=== PATIENT | male | born 1950 | race Hispanic/Latino ===

== ENCOUNTER 2017-07-21 14:25 | Inpatient (IN) | payer OTHER ==
[~2017-07-21] VITALS: Ht 170.2 cm; Wt 99.8 kg
[2017-07-21] MEDS: CEFAZOLIN SODIUM 1 GM VIAL IVP SCH (09:00)
[2017-07-21 15:05] VITALS: BP 123/68
[2017-07-21 15:09] LABS: BASOPHILS % (AUTO) 0.5 % (0.0-5.0); EOSINOPHILS % (AUTO) 2.9 % (0.0-8.0); HEMATOCRIT 37.9 % (42-54); LYMPHOCYTES % (AUTO) 17.7 % (21.0-51.0); MEAN CORPUSCULAR HEMOGLOBIN 30.4 pg (27.0-33.0); MEAN CORPUSCULAR VOLUME 86.9 fL (79-99); MONOCYTES % (AUTO) 9.6 % (3.0-13.0); NEUTROPHILS % (AUTO) 69.3 % (40.0-77.0); NUCLEATED RED BLOOD CELLS 0.1 % (0.0-0.19); PLATELET COUNT (AUTO) 199 K/uL (130-400); RED BLOOD CELL COUNT(AUTO) 4.36 MIL/uL (4.50-6.20); RED CELL DISTRIBUTION WIDTH 15.4 % (11.0-15.5); WHITE BLOOD COUNT (AUTO) 8.4 K/uL (4.8-10.8)
[2017-07-21 15:10] LABS: APPEARANCE,URINE Clear (CLEAR); BILIRUBIN,URINE Negative (NEGATIVE); COLOR,URINE Yellow (YELLOW); GLUCOSE, URINE (UA) Negative (NEGATIVE); KETONES,URINE Negative (NEGATIVE); LEUKOCYTE ESTERASE ,URINE Negative (NEGATIVE); NITRATE,URINE Negative (NEGATIVE); OCCULT BLOOD,URINE Negative (NEGATIVE); PROTEIN,URINE Negative (NEGATIVE)
[2017-07-21 15:22] LABS: POTASSIUM 3.3 mmol/L (3.5-5.1)
[2017-07-21 15:26] LABS: INR 1.18 (0.85-1.15); PARTIAL THROMBOPLASTIN TIME 28.5 SEC (26.3-35.5); PROTHROMBIN TIME 12.4 SEC (9.6-11.6)
[2017-07-21] MEDS ORDERED: ATOR20TA65 PO (16:20)
[2017-07-21] MEDS ORDERED: WARF-67 PO ×2 (16:20)
[2017-07-21] MEDS ORDERED: METO100T14 PO (16:20)
[2017-07-21] MEDS ORDERED: METF10004 PO (16:20)
[2017-07-21] MEDS ORDERED: ISOS30TA6 PO (16:20)
[2017-07-21] MEDS ORDERED: LISI-613 PO (16:20)
[2017-07-21] MEDS ORDERED: AMLO10TA2 PO (16:20)
[2017-07-21] MEDS ORDERED: FURO40TA5 PO (16:20)
[2017-07-21] MEDS ORDERED: GLIP10TA9 PO (16:20)
[2017-07-21] MEDS ORDERED: SITA100T12 PO (16:20)
[2017-07-24] VITALS (24 sets, daily range): BP systolic 112–149; BP diastolic 67–83
[2017-07-24] MEDS ORDERED: SODIUM CHLORIDE 0.9% 1000ML 1,000 ML IV ONE (08:14)
[2017-07-24] MEDS ORDERED: ACETAMINOPHEN EXTRA STRENGTH 500 MG TABLET ONE (12:16)
[2017-07-24] MEDS ORDERED: KETOROLAC TROMETHAMINE 15MG/ML ONE (12:16)
[2017-07-24] MEDS ORDERED: OXYCODONE HCL 10 MG TAB.SR.12H PO ONE (12:16)
[2017-07-24] MEDS ORDERED: CELECOXIB 200 MG CAP ONE (12:16)
[2017-07-24] MEDS ORDERED: CEFAZOLIN SODIUM 1 GM VIAL ONE (12:39)
[2017-07-24] MEDS ORDERED: BUPIVACAINE/EPI/PF 0.25% 30ML VIAL IJ ONE (12:40)
[2017-07-24] MEDS ORDERED: PHENYLEPHRINE HCL 10 MG/ML 1ML VIAL IV ONE (12:45)
[2017-07-24] MEDS ORDERED: ONDANSETRON HCL 4 MG/2 ML VIAL ONE (12:45)
[2017-07-24] MEDS ORDERED: PROPOFOL 10 MG/ML 20ML VIAL IV ONE (12:46)
[2017-07-24] MEDS ORDERED: ROCURONIUM BROMIDE 10MG/1ML 5ML VL ONE (12:46)
[2017-07-24] MEDS ORDERED: SODIUM CHLORIDE 0.9% 10 ML VIAL ONE (12:46)
[2017-07-24] MEDS ORDERED: LIDOCAINE PF 2% 5ML ABBOJECT ONE (12:46)
[2017-07-24] MEDS ORDERED: FENTANYL CITRATE PF 50 MCG/1 ML 2ML VIAL ONE ×2 (12:46→16:23)
[2017-07-24] MEDS ORDERED: MIDAZOLAM HCL 1 MG/ML 2ML VIAL ONE (12:46)
[2017-07-24] MEDS ORDERED: ROPIVACAINE 0.5% 5MG/ML 30ML IJ ONE (12:54)
[2017-07-24] MEDS: CEFAZOLIN SODIUM 1 GM VIAL IVP SCH (14:38)
[2017-07-24] MEDS ORDERED: THROMBIN-JMI 5000 UNIT/VIAL TP ONE (14:53)
[2017-07-24] MEDS ORDERED: CEFAZOLIN SODIUM 1 GM VIAL IRRIG ONE (15:06)
[2017-07-24] MEDS ORDERED: WARFARIN SODIUM 5 MG TAB PO SCH (16:00)
[2017-07-24] MEDS: SODIUM CHLORIDE 0.9% 1000ML 1,000 ML IV SCH (16:23)
[2017-07-24] MEDS: INSULIN HUMULIN R 100 UNIT/ML 3ML SQ SCH ×2 (16:30→22:46)
[2017-07-24] MEDS ORDERED: TRAMADOL HCL 50 MG TABLET PO PRN (16:30)
[2017-07-24] MEDS ORDERED: FERROUS FUMARATE 324 MG TABLET PO PRN (16:30)
[2017-07-24] MEDS ORDERED: PROMETHAZINE HCL 25 MG/ML 1ML AMPULE IM PRN (16:30)
[2017-07-24] MEDS ORDERED: LIDOCAINE HCL-MPF 1% 2ML VIAL IVP PRN (16:30)
[2017-07-24] MEDS ORDERED: POTASSIUM CHLORIDE 10% ELIXIR 20 MEQ/15 ML UDCUP PO PRN (16:30)
[2017-07-24] MEDS ORDERED: DiphenhydrAMINE HCL 50 MG/ML VIAL IVP PRN (16:30)
[2017-07-24] MEDS ORDERED: DIPHENHYDRAMINE HCL 25 MG CAPSULE PO PRN (16:30)
[2017-07-24] MEDS ORDERED: KETOROLAC TROMETHAMINE 15MG/ML IV PRN (16:30)
[2017-07-24] MEDS ORDERED: CALCIUM CARBONATE 500 MG TABLET PO PRN (16:30)
[2017-07-24] MEDS ORDERED: OXYCODONE HCL 5 MG TAB PO PRN ×2 (16:30)
[2017-07-24] MEDS ORDERED: TEMAZEPAM 15 MG CAPSULE PO PRN (16:30)
[2017-07-24] MEDS ORDERED: POTASSIUM CHLORIDE 20MEQ/100ML 100 ML IV PRN (16:30)
[2017-07-24] MEDS: POTASSIUM CHLORIDE 20 MEQ ERTAB PO PRN (18:22)
[2017-07-24] MEDS: ACETAMINOPHEN 325 MG TAB PO SCH ×2 (18:23→21:47)
[2017-07-24] MEDS: FAMOTIDINE 20MG TAB 20 MG TAB PO SCH (21:46)
[2017-07-24] MEDS: CELECOXIB 200 MG CAP PO SCH (21:46)
[2017-07-24] MEDS: PREGABALIN 75 MG CAPSULE PO SCH (21:47)
[2017-07-24] MEDS ORDERED: WARFARIN SODIUM 2 MG TAB PO SCH (22:00)
[2017-07-24] MEDS: CEFAZOLIN 3GM /D5W 100ML 100 ML IV SCH (22:38)
[2017-07-25] MEDS: METOPROLOL TARTRATE 50 MG TAB PO SCH ×3 (00:01→21:14)
[2017-07-25] MEDS: LISINOPRIL 20 MG TABLET PO SCH ×3 (00:01→21:13)
[2017-07-25 00:23] VITALS: BP 150/94
[2017-07-25] MEDS: SODIUM CHLORIDE 0.9% 1000ML 1,000 ML IV SCH (02:23)
[2017-07-25] MEDS: CEFAZOLIN 3GM /D5W 100ML 100 ML IV SCH (04:24)
[2017-07-25] MEDS: ACETAMINOPHEN 325 MG TAB PO SCH ×4 (04:25→23:19)
[2017-07-25 04:48] VITALS: BP 130/85
[2017-07-25 05:12] LABS: HEMATOCRIT 33.8 % (42-54); MEAN CORPUSCULAR HEMOGLOBIN 30.5 pg (27.0-33.0); MEAN CORPUSCULAR HGB CONC 35.5 g/dL (32.0-36.0); MEAN CORPUSCULAR VOLUME 86.1 fL (79-99); PLATELET COUNT (AUTO) 189 K/uL (130-400); RED BLOOD CELL COUNT(AUTO) 3.92 MIL/uL (4.50-6.20); RED CELL DISTRIBUTION WIDTH 15.4 % (11.0-15.5); WHITE BLOOD COUNT (AUTO) 12.5 K/uL (4.8-10.8)
[2017-07-25 05:23] LABS: INR 1.25 (0.85-1.15); PROTHROMBIN TIME 13.1 SEC (9.6-11.6)
[2017-07-25 05:31] LABS: POTASSIUM 3.6 mmol/L (3.5-5.1)
[2017-07-25] MEDS: INSULIN HUMULIN R 100 UNIT/ML 3ML SQ SCH ×4 (06:35→21:00)
[2017-07-25 08:21] VITALS: BP 154/87
[2017-07-25] MEDS: POLYETHYLENE GLYCOL 3350 17 GM POWD.PACK PO SCH (09:15)
[2017-07-25] MEDS: LINAGLIPTIN 5 MG TABLET PO SCH (09:16)
[2017-07-25] MEDS: AMLODIPINE BESYLATE 5 MG TAB PO SCH (09:16)
[2017-07-25] MEDS: TAMSULOSIN HCL 0.4 MG CAP.ER.24H PO SCH (09:16)
[2017-07-25] MEDS: ISOSORBIDE MONO 30MG TAB SR PO SCH (09:16)
[2017-07-25] MEDS: CELECOXIB 200 MG CAP PO SCH ×2 (09:16→21:14)
[2017-07-25] MEDS: PREGABALIN 75 MG CAPSULE PO SCH ×2 (09:16→21:14)
[2017-07-25] MEDS: ATORVASTATIN CALCIUM 20 MG TABLET PO SCH (09:17)
[2017-07-25] MEDS: FUROSEMIDE 40 MG TABLET PO SCH (09:17)
[2017-07-25] MEDS: FAMOTIDINE 20MG TAB 20 MG TAB PO SCH ×2 (09:17→21:13)
[2017-07-25] MEDS: GLIPIZIDE 5 MG TABLET PO SCH (09:17)
[2017-07-25] MEDS: METFORMIN HCL 500 MG TABLET PO SCH ×2 (09:17→17:50)
[2017-07-25] MEDS: POTASSIUM CHLORIDE 20 MEQ ERTAB PO PRN ×2 (09:22→11:30)
[2017-07-25] MEDS: PSYLLIUM SEED 1 EACH PACKET PO SCH (11:30)
[2017-07-25 12:03] VITALS: BP 125/67
[2017-07-25] MEDS ORDERED: WARFARIN SODIUM 2 MG TAB PO SCH ×3 (17:00)
[2017-07-25 17:29] VITALS: BP 116/68
[2017-07-25 20:44] VITALS: BP 114/97
[2017-07-26 00:39] VITALS: BP 118/77
[2017-07-26 04:32] VITALS: BP 130/72
[2017-07-26] MEDS: ACETAMINOPHEN 325 MG TAB PO SCH ×2 (04:33→11:10)
[2017-07-26 06:10] LABS: HEMATOCRIT 29.9 % (42-54); MEAN CORPUSCULAR HEMOGLOBIN 30.7 pg (27.0-33.0); MEAN CORPUSCULAR HGB CONC 35.3 g/dL (32.0-36.0); MEAN CORPUSCULAR VOLUME 87.1 fL (79-99); PLATELET COUNT (AUTO) 159 K/uL (130-400); RED BLOOD CELL COUNT(AUTO) 3.43 MIL/uL (4.50-6.20); RED CELL DISTRIBUTION WIDTH 15.8 % (11.0-15.5); WHITE BLOOD COUNT (AUTO) 9.7 K/uL (4.8-10.8)
[2017-07-26 06:16] LABS: CREATININE 0.9 mg/dL (0.5-1.5)
[2017-07-26 06:20] LABS: INR 1.48 (0.85-1.15); PROTHROMBIN TIME 15.4 SEC (9.6-11.6)
[2017-07-26 06:25] LABS: POTASSIUM 3.6 mmol/L (3.5-5.1)
[2017-07-26] MEDS: INSULIN HUMULIN R 100 UNIT/ML 3ML SQ SCH ×2 (06:27→11:30)
[2017-07-26] MEDS: POTASSIUM CHLORIDE 20 MEQ ERTAB PO PRN (06:50)
[2017-07-26 08:11] VITALS: BP 131/80
[2017-07-26] MEDS: METFORMIN HCL 500 MG TABLET PO SCH (08:59)
[2017-07-26] MEDS: AMLODIPINE BESYLATE 5 MG TAB PO SCH (08:59)
[2017-07-26] MEDS: FAMOTIDINE 20MG TAB 20 MG TAB PO SCH (09:00)
[2017-07-26] MEDS: PREGABALIN 75 MG CAPSULE PO SCH (09:00)
[2017-07-26] MEDS: CELECOXIB 200 MG CAP PO SCH (09:00)
[2017-07-26] MEDS: GLIPIZIDE 5 MG TABLET PO SCH (09:00)
[2017-07-26] MEDS: LINAGLIPTIN 5 MG TABLET PO SCH (09:00)
[2017-07-26] MEDS: LISINOPRIL 20 MG TABLET PO SCH (09:00)
[2017-07-26] MEDS: METOPROLOL TARTRATE 50 MG TAB PO SCH (09:01)
[2017-07-26] MEDS: TAMSULOSIN HCL 0.4 MG CAP.ER.24H PO SCH (09:01)
[2017-07-26] MEDS: ATORVASTATIN CALCIUM 20 MG TABLET PO SCH (09:01)
[2017-07-26] MEDS: ISOSORBIDE MONO 30MG TAB SR PO SCH (09:01)
[2017-07-26] MEDS: FUROSEMIDE 40 MG TABLET PO SCH (09:02)
[2017-07-26] MEDS: POLYETHYLENE GLYCOL 3350 17 GM POWD.PACK PO SCH (09:02)
[2017-07-26] MEDS ORDERED: BISACODYL 5 MG TABLET.DR PO PRN ×2 (10:15→16:30)
[2017-07-26 11:58] VITALS: BP 104/71
[2017-07-26] MEDS ORDERED: HYDR-309 PO (12:52)
[2017-07-26] MEDS: PSYLLIUM SEED 1 EACH PACKET PO SCH (13:12)
[2017-07-26] MEDS ORDERED: WARFARIN SODIUM 2 MG TAB PO SCH (16:00)
[2017-07-26 17:33] VITALS: BP 105/68
[2017-07-27] MEDS ORDERED: BISACODYL 10 MG SUPP.RECT RC PRN (16:30)
== END 2017-07-26 17:50 | DRG 470 ==
LOC: EDHIP 14:25 → UNDOADMIN 14:25 → DAHIP 07-24 07:21 → 4AH 07-24 17:15
PROVIDERS: ADMIT Orthopaedic Surgery; ATTEND Orthopaedic Surgery
PROC: 0SRD0J9 Replacement of Left Knee Joint with Synthetic Substitute, Cemented, Open Approach (ICD-10-PCS; principal; 2017-07-24 14:07)
DX: M17.12 Unilateral primary osteoarthritis, left knee (principal); E11.9 Type 2 diabetes mellitus without complications; K21.9 Gastro-esophageal reflux disease without esophagitis; I10 Essential (primary) hypertension; E78.5 Hyperlipidemia, unspecified; Z95.1 Presence of aortocoronary bypass graft; Z86.73 Personal history of transient ischemic attack (TIA), and cerebral infarction without residual deficits
CPT/HCPCS: 36415; 80048; 81003; 82948; 84132; 85025; 85027; 85610; 85730; 88305; 88311; 96374; A4218; C1713; J0690; J1815; J1885; J2001; J2250; J2370; J2405; J2704; J2795; J3010; J3490; J7030

== ENCOUNTER → 2019-05-09 | Outpatient (CLI) | payer OTHER ==
[~2019-05-09] MED LIST: AMLO10TA7 PO; ATOR20TA65 PO; FURO40TA5 PO; GLIP10TA9 PO; HYDR-4457 PO; ISOS30TA6 PO; LISI-613 PO; METF-446 PO; METO100T14 PO; SITA100T12 PO; WARF-67 PO
== END | disposition home or self-care (01) ==
LOC: RAH 11:30
PROVIDERS: ATTEND Internal Medicine
DX: M19.032 Primary osteoarthritis, left wrist (principal)
CPT/HCPCS: 73110

== ENCOUNTER → 2021-12-27 | Outpatient (CLI) | payer OTHER ==
[~2021-12-27] MED LIST changes: +AMLO-258 PO; -AMLO10TA7 PO; -ISOS30TA6 PO; +ISOS30TA92 PO; -LISI-613 PO; +LISI20TA24 PO
== END | disposition home or self-care (01) ==
LOC: RAH 12:02
PROVIDERS: ATTEND Internal Medicine
DX: I08.3 Combined rheumatic disorders of mitral, aortic and tricuspid valves (principal); I11.9 Hypertensive heart disease without heart failure; I25.10 Atherosclerotic heart disease of native coronary artery without angina pectoris; E11.9 Type 2 diabetes mellitus without complications; E66.9 Obesity, unspecified; E78.5 Hyperlipidemia, unspecified; Z95.1 Presence of aortocoronary bypass graft
CPT/HCPCS: 93306

== ENCOUNTER → 2022-02-21 | Outpatient (CLI) | payer OTHER ==
[~2022-02-21] MED LIST changes: +REGADENOSON 0.4 MG/5 ML PF SYG IVP SCH
== END | disposition home or self-care (01) ==
LOC: RAH 07:59
PROVIDERS: ATTEND Internal Medicine
DX: I48.91 Unspecified atrial fibrillation (principal); I25.118 Atherosclerotic heart disease of native coronary artery with other forms of angina pectoris; I50.42 Chronic combined systolic (congestive) and diastolic (congestive) heart failure; R94.39 Abnormal result of other cardiovascular function study
CPT/HCPCS: 78452; 96374; 93017; J2785; A9500 ×2

== ENCOUNTER 2022-11-07 05:46 | Observation (INO) | payer OTHER ==
[2022-11-04 09:28] LABS: APPEARANCE,URINE CLEAR (CLEAR); BILIRUBIN,URINE NEGATIVE (NEGATIVE); COLOR,URINE LIGHT-YELLOW (YELLOW); GLUCOSE, URINE (UA) NEGATIVE (NEGATIVE); KETONES,URINE NEGATIVE (NEGATIVE); LEUKOCYTE ESTERASE ,URINE NEGATIVE Leu/uL (NEGATIVE); NITRATE,URINE NEGATIVE (NEGATIVE); OCCULT BLOOD,URINE NEGATIVE (NEGATIVE); PH,URINE 6.5 (5.0-8.0); PROTEIN,URINE NEGATIVE (NEGATIVE)
[2022-11-04 09:31] LABS: RBC,URINE 0-1 /HPF (0-1); WBC,URINE 0-1 /HPF (0-1)
[2022-11-04 09:35] LABS: BASOPHILS % (AUTO) 0.4 % (0.0-5.0); EOSINOPHILS % (AUTO) 5.4 % (0.0-8.0); HEMATOCRIT 38.2 % (42-54); LYMPHOCYTES % (AUTO) 12.7 % (21.0-51.0); MEAN CORPUSCULAR HEMOGLOBIN 29.2 pg (27.0-33.0); MEAN CORPUSCULAR VOLUME 88.4 fL (79-99); MONOCYTES % (AUTO) 12.8 % (3.0-13.0); NEUTROPHILS % (AUTO) 67.4 % (40.0-77.0); PLATELET COUNT (AUTO) 226 K/uL (130-400); RED BLOOD CELL COUNT(AUTO) 4.32 MIL/uL (4.50-6.20); RED CELL DISTRIBUTION WIDTH 13.8 % (11.0-15.5); WHITE BLOOD COUNT (AUTO) 7.7 K/uL (4.8-10.8)
[2022-11-04 09:53] LABS: INR 1.79 (0.85-1.15); PROTHROMBIN TIME 18.9 SEC (9.6-11.6)
[2022-11-04 09:54] LABS: PARTIAL THROMBOPLASTIN TIME 51.7 SEC (26.3-35.5)
[2022-11-04 09:55] LABS: ALBUMIN 3.3 g/dL (3.5-5.0); CREATININE 1.2 mg/dL (0.5-1.5); CRP QUANTITATIVE 57.1 mg/L (0.00-9.0)
[2022-11-04 12:55] VITALS: BP 121/69
[2022-11-07] VITALS (26 sets, daily range): BP systolic 99–124; BP diastolic 57–81
[~2022-11-07] VITALS: Ht 170.2 cm; Wt 94.9 kg
[~2022-11-07 05:46] MED LIST changes: +CARV6.25 PO; -GLIP10TA9 PO; -HYDR-4457 PO; +INSU300I SQ; -METF-446 PO; -METO100T14 PO; +OMEGA 3 ACID PO; +POTA-364 PO; -REGADENOSON 0.4 MG/5 ML PF SYG IVP SCH; +RIVA20TA PO; -SITA100T12 PO; -WARF-67 PO
[2022-11-07] MEDS ORDERED: 0.9%NACL 1000ML 1,000 ML IV ONE (06:22)
[2022-11-07] MEDS ORDERED: KETOROLAC 30MG VIAL (30MG/ML) ONE (06:30)
[2022-11-07] MEDS ORDERED: BUPIVACAINE/PF 0.5% 30ML VIAL ONE (06:30)
[2022-11-07] MEDS: CEFAZOLIN SODIUM 2 GM VIAL ONE ×2 (06:35→07:22)
[2022-11-07] MEDS ORDERED: TRANEXAMIC ACID 1000MG/10ML ONE ×2 (06:36→08:06)
[2022-11-07] MEDS ORDERED: LIDOCAINE PF 100MG/5ML (2%) SYRINGE 5ML ONE (06:52)
[2022-11-07] MEDS ORDERED: SUCCINYLCHOLINE 200MG/10ML SYR ONE (06:52)
[2022-11-07] MEDS ORDERED: PROPOFOL 10 MG/ML 20ML VIAL IV ONE (06:53)
[2022-11-07] MEDS ORDERED: DEXAMETHASONE SOD PHOSPHATE 10MG/ML 1ML VIAL ONE (06:53)
[2022-11-07] MEDS ORDERED: ONDANSETRON 4MG INJ ONE ×2 (06:53→09:29)
[2022-11-07] MEDS ORDERED: ROCURONIUM 10MG/1ML SYR 10 MG/ML ML ONE (06:53)
[2022-11-07] MEDS ORDERED: FENTANYL CITRATE PF 50 MCG/1 ML 2ML VIAL ONE ×2 (06:53→07:58)
[2022-11-07] MEDS ORDERED: ROPIVACAINE 0.5% 5MG/ML 30ML IJ ONE (07:03)
[2022-11-07] MEDS ORDERED: PHENYLEPHRINE HCL 10 MG/ML 1ML VIAL IV ONE (07:04)
[2022-11-07] MEDS ORDERED: EPHEDRINE SULFATE 50 MG/ML AMPULE ONE (07:04)
[2022-11-07] MEDS ORDERED: NEOSTIGMINE 5MG/5ML SYR IV ONE (08:30)
[2022-11-07] MEDS ORDERED: GLYCOPYRROLATE 1 MG/5 ML SYRINGE ONE (08:30)
[2022-11-07] MEDS ORDERED: TRANEXAMIC ACID 1000MG/10ML IV ONE (08:42)
[2022-11-07] MEDS ORDERED: CALCIUM CARB 500MG PO PRN (09:00)
[2022-11-07] MEDS: POLYETHYLENE GLYCOL 3350 17 GM POWD.PACK PO SCH (09:00)
[2022-11-07] MEDS: 0.9%NACL 1000ML 1,000 ML IV SCH ×2 (09:00→20:33)
[2022-11-07] MEDS ORDERED: DiphenhydrAMINE HCL 50 MG/ML VIAL IVP PRN (09:00)
[2022-11-07] MEDS ORDERED: KCL 20 MEQ ERTAB PO PRN (09:00)
[2022-11-07] MEDS: DOCUSATE SODIUM 100 MG CAP PO SCH ×2 (09:00→20:36)
[2022-11-07] MEDS ORDERED: CYCLOBENZAPRINE HCL 10 MG TABLET PO PRN (09:00)
[2022-11-07] MEDS: GABAPENTIN 100 MG CAPSULE PO SCH ×3 (09:00→20:36)
[2022-11-07] MEDS ORDERED: POTASSIUM CHLORIDE 10% ELIXIR 20 MEQ/15 ML UDCUP PO PRN (09:00)
[2022-11-07] MEDS: ASPIRIN 325MG TAB PO SCH (09:00)
[2022-11-07] MEDS ORDERED: FERROUS FUMARATE 324 MG TABLET PO PRN (09:00)
[2022-11-07] MEDS: KETOROLAC 15MG/ML VIAL (15MG/ML) IV SCH ×2 (09:00→11:31)
[2022-11-07] MEDS ORDERED: POTASSIUM CHLORIDE 20MEQ/100ML 100 ML IV PRN (09:00)
[2022-11-07] MEDS ORDERED: TRAMADOL HCL 50 MG TABLET PO PRN (09:00)
[2022-11-07] MEDS ORDERED: ONDANSETRON 4MG INJ IVP PRN (09:00)
[2022-11-07] MEDS ORDERED: MEPERIDINE-PF 25 MG/ML SYG ONE (09:29)
[2022-11-07] MEDS: CEFAZOLIN SODIUM 1 GM VIAL IVPB SCH ×2 (14:46→21:35)
[2022-11-08] VITALS: BP 141/71
[2022-11-08] MEDS: KETOROLAC 15MG/ML VIAL (15MG/ML) IV SCH (01:01)
[2022-11-08 04:00] VITALS: BP 123/71
[2022-11-08] MEDS: 0.9%NACL 1000ML 1,000 ML IV SCH (04:09)
[2022-11-08 05:35] LABS: HEMATOCRIT 32.2 % (42-54); MEAN CORPUSCULAR HEMOGLOBIN 29.3 pg (27.0-33.0); MEAN CORPUSCULAR HGB CONC 33.2 g/dL (32.0-36.0); MEAN CORPUSCULAR VOLUME 88.2 fL (79-99); RED BLOOD CELL COUNT(AUTO) 3.65 MIL/uL (4.50-6.20); RED CELL DISTRIBUTION WIDTH 13.7 % (11.0-15.5); WHITE BLOOD COUNT (AUTO) 11.3 K/uL (4.8-10.8)
[2022-11-08 05:44] LABS: CREATININE 1.2 mg/dL (0.5-1.5); POTASSIUM 4.3 mmol/L (3.5-5.1)
[2022-11-08 08:00] VITALS: BP 129/74
[2022-11-08] MEDS ORDERED: KETOROLAC 15MG/ML VIAL (15MG/ML) IV PRN (09:00)
[2022-11-08] MEDS: POLYETHYLENE GLYCOL 3350 17 GM POWD.PACK PO SCH (09:19)
[2022-11-08] MEDS: ASPIRIN 325MG TAB PO SCH (09:19)
[2022-11-08] MEDS: DOCUSATE SODIUM 100 MG CAP PO SCH ×2 (09:19→20:13)
[2022-11-08] MEDS: FISH OIL 1000 MG/CAP PO SCH ×2 (09:19→20:12)
[2022-11-08] MEDS: FUROSEMIDE 40 MG TABLET PO SCH ×2 (09:19→20:13)
[2022-11-08] MEDS: LISINOPRIL 20 MG TABLET PO SCH ×2 (09:20→20:12)
[2022-11-08] MEDS: AMLODIPINE 5 MG TAB PO SCH (09:20)
[2022-11-08] MEDS: GABAPENTIN 100 MG CAPSULE PO SCH ×3 (09:20→20:12)
[2022-11-08] MEDS: ISOSORBIDE MONO 30MG SR TAB PO SCH (09:20)
[2022-11-08] MEDS: CARVEDILOL 6.25 MG TABLET PO SCH ×2 (09:21→20:13)
[2022-11-08] MEDS: POTASSIUM CHLORIDE 10MEQ SR TAB PO SCH (09:21)
[2022-11-08] MEDS: INSULIN GLARGINE 100 UNITS/ML 10 ML VIAL SQ SCH (09:26)
[2022-11-08 11:36] VITALS: BP 98/61
[2022-11-08] MEDS: INSULIN HUMULIN R 100 UNIT/ML 3ML SQ SCH ×3 (12:35→21:00)
[2022-11-08 16:00] VITALS: BP 127/76
[2022-11-08 20:00] VITALS: BP 113/79
[2022-11-08] MEDS: ATORVASTATIN 20 MG TABLET PO SCH (20:12)
[2022-11-08] MEDS: HYDROCODONE/ACETAMINOPHEN 5/325 MG TAB PO PRN (20:14)
[2022-11-09] VITALS: BP 121/72
[2022-11-09] MEDS: INSULIN HUMULIN R 100 UNIT/ML 3ML SQ SCH ×3 (05:53→21:57)
[2022-11-09 08:00] VITALS: BP 121/72
[2022-11-09] MEDS: POTASSIUM CHLORIDE 10MEQ SR TAB PO SCH (09:00)
[2022-11-09] MEDS: INSULIN GLARGINE 100 UNITS/ML 10 ML VIAL SQ SCH (09:00)
[2022-11-09] MEDS: FISH OIL 1000 MG/CAP PO SCH ×2 (11:50→21:53)
[2022-11-09] MEDS: FUROSEMIDE 40 MG TABLET PO SCH ×2 (11:51→21:52)
[2022-11-09] MEDS: POLYETHYLENE GLYCOL 3350 17 GM POWD.PACK PO SCH (11:51)
[2022-11-09] MEDS: AMLODIPINE 5 MG TAB PO SCH (11:52)
[2022-11-09] MEDS: CARVEDILOL 6.25 MG TABLET PO SCH ×2 (11:53→21:52)
[2022-11-09] MEDS: DOCUSATE SODIUM 100 MG CAP PO SCH ×2 (11:54→21:51)
[2022-11-09] MEDS: ASPIRIN 325MG TAB PO SCH (11:54)
[2022-11-09] MEDS: ISOSORBIDE MONO 30MG SR TAB PO SCH (11:55)
[2022-11-09 12:00] VITALS: BP 130/83
[2022-11-09] MEDS: LISINOPRIL 20 MG TABLET PO SCH ×2 (12:19→21:52)
[2022-11-09] MEDS: GABAPENTIN 100 MG CAPSULE PO SCH ×3 (12:19→21:53)
[2022-11-09] MEDS: TAMSULOSIN HCL 0.4 MG CAP.ER.24H PO SCH (14:55)
[2022-11-09 16:00] VITALS: BP 143/72
[2022-11-09 20:00] VITALS: BP 117/71
[2022-11-09] MEDS: ATORVASTATIN 20 MG TABLET PO SCH (21:51)
[2022-11-09] MEDS: HYDROCODONE/ACETAMINOPHEN 5/325 MG TAB PO PRN (21:53)
[2022-11-10] VITALS: BP 117/64
[2022-11-10 04:05] VITALS: BP 88/64
[2022-11-10] MEDS: INSULIN HUMULIN R 100 UNIT/ML 3ML SQ SCH ×3 (05:32→16:30)
[2022-11-10 08:00] VITALS: BP 105/58
[2022-11-10] MEDS ORDERED: BISACODYL 10 MG SUPP.RECT RC PRN (09:00)
[2022-11-10] MEDS: GABAPENTIN 100 MG CAPSULE PO SCH ×2 (09:33→14:16)
[2022-11-10] MEDS: DOCUSATE SODIUM 100 MG CAP PO SCH (09:33)
[2022-11-10] MEDS: FUROSEMIDE 40 MG TABLET PO SCH (09:33)
[2022-11-10] MEDS: FISH OIL 1000 MG/CAP PO SCH (09:33)
[2022-11-10] MEDS: AMLODIPINE 5 MG TAB PO SCH (09:33)
[2022-11-10] MEDS: ISOSORBIDE MONO 30MG SR TAB PO SCH (09:33)
[2022-11-10] MEDS: POTASSIUM CHLORIDE 10MEQ SR TAB PO SCH (09:34)
[2022-11-10] MEDS: CARVEDILOL 6.25 MG TABLET PO SCH (09:35)
[2022-11-10] MEDS: TAMSULOSIN HCL 0.4 MG CAP.ER.24H PO SCH (09:35)
[2022-11-10] MEDS: LISINOPRIL 20 MG TABLET PO SCH (09:35)
[2022-11-10] MEDS: ASPIRIN 325MG TAB PO SCH (09:35)
[2022-11-10] MEDS: POLYETHYLENE GLYCOL 3350 17 GM POWD.PACK PO SCH (09:35)
[2022-11-10] MEDS: INSULIN GLARGINE 100 UNITS/ML 10 ML VIAL SQ SCH (09:42)
[2022-11-10 12:00] VITALS: BP 79/53
[2022-11-10 16:00] VITALS: BP 106/70
[2022-11-10] MEDS ORDERED: DOCU-116 PO (16:52)
[2022-11-10] MEDS ORDERED: HYDR-4060 PO (16:52)
[2022-11-10] MEDS ORDERED: CYCL-309 PO (16:52)
[2022-11-10] MEDS ORDERED: GABA100C PO (16:52)
== END 2022-11-10 18:10 ==
LOC: DAH 05:46 → DAHIP 05:47 → DAH 05:47 → 4CH 10:40
PROVIDERS: ADMIT Student in an Organized Health Care Education/Training Program; ATTEND Student in an Organized Health Care Education/Training Program
DX: M17.11 Unilateral primary osteoarthritis, right knee (principal); Z20.822 Contact with and (suspected) exposure to COVID-19; I10 Essential (primary) hypertension; K21.9 Gastro-esophageal reflux disease without esophagitis; E11.65 Type 2 diabetes mellitus with hyperglycemia; M25.461 Effusion, right knee; D62 Acute posthemorrhagic anemia; I20.9 Angina pectoris, unspecified; E78.5 Hyperlipidemia, unspecified; E88.09 Other disorders of plasma-protein metabolism, not elsewhere classified; R79.89 Other specified abnormal findings of blood chemistry; Z79.899 Other long term (current) drug therapy; Z98.890 Other specified postprocedural states; Z79.4 Long term (current) use of insulin; Z86.73 Personal history of transient ischemic attack (TIA), and cerebral infarction without residual deficits; Z79.84 Long term (current) use of oral hypoglycemic drugs; Z79.01 Long term (current) use of anticoagulants; Z95.1 Presence of aortocoronary bypass graft
CPT/HCPCS: 82040; 80048 ×2; 85025; 85610; 85730; 87088; 84134; 86140; 87426; 81001; 36415 ×2; 93005; 87641; 27447; 96365; 64447; 82948 ×15; 73560; 97161; 97116 ×7; 97039 ×6; 96366 ×2; 96375; 85027; 97530 ×6; G0378 ×76; A4663; A4215 ×2; J3010 ×2; J0690 ×3; J3490 ×6; J0330; J1100; J2710; J7030; J2001; J2704; J2405 ×2; J1885 ×2; J2175; J2795; J2370; C1713 ×2; G0168; C1776 ×2; A4649 ×4; A6255; A5120; A4223; A4222; A4221; J1815

== ENCOUNTER → 2023-04-04 | Outpatient (CLI) | payer OTHER ==
[~2023-04-04] MED LIST changes: +CYCL-309 PO; +DOCU-116 PO; +GABA100C PO; +HYDR-4060 PO
== END | disposition home or self-care (01) ==
LOC: RAH 08:06
PROVIDERS: ATTEND Internal Medicine
DX: N28.1 Cyst of kidney, acquired (principal); R63.4 Abnormal weight loss; D64.9 Anemia, unspecified; R97.20 Elevated prostate specific antigen [PSA]; K57.90 Diverticulosis of intestine, part unspecified, without perforation or abscess without bleeding; M47.815 Spondylosis without myelopathy or radiculopathy, thoracolumbar region; I70.90 Unspecified atherosclerosis
CPT/HCPCS: 74176

== ENCOUNTER → 2023-06-06 | Outpatient (CLI) | payer OTHER ==
[2023-06-06 15:41] LABS: CREATININE 1.1 mg/dL (0.5-1.5)
== END | disposition home or self-care (01) ==
LOC: LAB 14:42
PROVIDERS: ATTEND Internal Medicine Gastroenterology
DX: R63.4 Abnormal weight loss (principal)
CPT/HCPCS: 36415; 71046; 82565; 84520

== ENCOUNTER → 2023-06-19 | Outpatient (CLI) | payer OTHER ==
[~2023-06-19] MED LIST changes: +IOHEXOL-350 75 ML VIAL IV ONE
== END | disposition home or self-care (01) ==
LOC: RAH 09:10
PROVIDERS: ATTEND Internal Medicine Gastroenterology
DX: N40.0 Benign prostatic hyperplasia without lower urinary tract symptoms (principal); K80.20 Calculus of gallbladder without cholecystitis without obstruction; R63.4 Abnormal weight loss
CPT/HCPCS: 74178; Q9967